=== PATIENT | female | born 1985 | race Caucasian/White ===

== ENCOUNTER → 2016-06-26 13:11 | Outpatient (CLI) | payer MEDICAID ==
[2014-02-14 09:49] VITALS: BMI 26.6
== END | disposition home or self-care (01) ==
LOC: D.CT 13:00
DX: J20.9 Acute bronchitis, unspecified (principal); R05 Cough

== ENCOUNTER 2016-08-08 17:17 | Emergency (ER) | payer MEDICAID ==
[2014-02-14 09:49] VITALS: BMI 26.6
== END 2016-08-08 20:15 | disposition home or self-care (01) ==
LOC: D.ER 17:17
DX: M94.0 Chondrocostal junction syndrome [Tietze] (principal)

== ENCOUNTER → 2016-10-22 13:22 | Outpatient (CLI) | payer MEDICAID ==
[2014-02-14 09:49] VITALS: BMI 26.6
== END | disposition home or self-care (01) ==
LOC: D.MRI 13:22
DX: M79.672 Pain in left foot (principal); R20.0 Anesthesia of skin; R60.0 Localized edema

== ENCOUNTER 2017-05-07 14:39 | Observation (INO) | payer MEDICAID ==
[~2017-05-07] VITALS: Ht 170.2 cm; Wt 91.8 kg
[2017-05-07 15:00] VITALS: BP 115/66
--- NOTE | 2017-05-07 15:00 | NUR ---
AMBULATORY PT TO L&D UNIT WITH MD ORDERS IN HAND. ESCORTED TO RM 1278 AND GIVEN INSTRUCTIONS ON GOWNING AND CC UA TO BE OBTAINED. STATES UNDERSTANDING.
[2017-05-07 15:09] VITALS: BP 115/66; Ht 170.2 cm; Wt 91.8 kg
--- NOTE | 2017-05-07 15:20 | NUR ---
IV START TO RIGHT HAND X1 STICK WITH 22G CATH, BLOOD OBTAINED SIMULTANEOUSLY FOR LABS ORDERED WELL. SECURED SITE WITH BIO-OCCLUSIVE DRESSING AND TAPED. TOLERATES PROCEDURE WELL. IV OF NS INFUSING AT 250ML/HR VIA PUMP WITHOUT DIFFICULTY.
[2017-05-07 15:31] LABS: HEMATOCRIT 35.9 % (36.0-48.0); HEMOGLOBIN 12.1 g/dL (12-16); MCH 29.1 pg (26.0-34.0); MCHC 33.7 g/dL (31.0-37.0); MCV 86.3 fL (80.0-100.0); MEAN PLATELET VOLUME 10.7 fL (7.4-10.4); PLATELET COUNT 189 10x3/uL (130-400); RBC 4.16 10x6/uL (4.00-5.40); RDW 13.6 % (11.5-14.5); WBC 10.1 10x3/uL (4.8-10.8)
--- NOTE | 2017-05-07 15:40 | NUR ---
31YO WF WITH C/O N/V SINCE 0100AM TODAY, UNABLE TO "KEEP ANYTHING DOWN, NOT EVEN A SIP OF SPRITE." PT IS ALSO 26WK , , LAST 6 YRS AGO. REPORTS HAS HAD PROBLEMS WITH HYPEREMESIS SINCE ONSET OF BUT THIS SUBSIDED AT WEEK 17, ALSO WITH C/O BACK PAIN, HEADACHES, AND LEG CRAMPS. STATES WAKES UP IN MIDDLE OF NIGHT CRYING. TYLENOL 1000MG PO GIVEN WITH SIPS OF WATER FOR C/O PAIN, HEADACHE AND ALSO ABDOMINAL CRAMPING THAT PT STATES IS DUE TO "ALL THE VOMITING." ORDERS RECEIVED AND RELAYED TO PT, DISCUSSED PLAN OF CARE, ORIENTATION TO ROOM, UNIT, CALL LIGHT. C/L IN EASY REACH, SR UP X2, BED IN LOW POSITION. STATES UNDERSTANDING OF ALL INFORMATION DISCUSSED AND FOR PLAN OF CARE.
[2017-05-07 15:54] LABS: APPEARANCE CLEAR (CLEAR); BILIRUBIN NEGATIVE (NEGATIVE); COLOR YELLOW (YELLOW); GLUCOSE NEGATIVE (NEGATIVE); KETONE MODERATE mg/dL (NEGATIVE); NITRITE NEGATIVE (NEGATIVE); PROTEIN NEGATIVE (NEGATIVE); UROBILINOGEN NORMAL (NORMAL)
--- NOTE | 2017-05-07 16:48 | NUR ---
C/O NAUSEA, NO VOMITING. REQUESTS PHENERGAN AT THIS TIME. PHENERGAN IM GIVEN PER MD ORDERS. REPOSITIONED TO COMFORT, RESP EVEN AND UNLABORED.
--- NOTE | 2017-05-07 17:15 | NUR ---
REPORTS NAUSEA SUBSIDED WITH PHENERGAN. ICE CHIPS PROVIDED PER REQUEST, FAMILY AT BS. RESP EVEN AND UNLABORED.
[2017-05-07 17:36] LABS: EOSINOPHILS 1 % (0-7); LYMPHOCYTES 15 % (15-50); MONOCYTES 1 % (2-11); NEUTROPHILS 83 % (40-80); PLATELET ESTIMATE NORMAL
[2017-05-07 17:38] VITALS: BP 104/58
== END 2017-05-07 19:40 | disposition home or self-care (01) ==
LOC: D.LD 14:39 → OBSVTIME 14:40 → D.LD 19:40
PROVIDERS: ADMIT Family Medicine
DX: O26.892 Other specified pregnancy related conditions, second trimester (principal); K52.9 Noninfective gastroenteritis and colitis, unspecified; E86.0 Dehydration